=== PATIENT | female | born 1965 | race Caucasian/White ===

== ENCOUNTER → 2018-10-07 19:29 | Outpatient (CLI) | payer OTHER | END | disposition home or self-care (01) | LOC: D.MAMMO 11:30 | PROVIDERS: ATTEND Family Medicine | DX: Z12.31 Encounter for screening mammogram for malignant neoplasm of breast (principal) ==

== ENCOUNTER 2018-12-06 07:13 | Day surgery (SDC) | payer OTHER ==
[~2018-12-06] VITALS: Ht 154.9 cm; Wt 99.3 kg
[2018-12-06 07:48] LABS: HEMATOCRIT 40.6 % (36.0-48.0); MCH 30.1 pg (26.0-34.0); MCHC 34.5 g/dL (31.0-37.0); MCV 87.3 fL (80.0-100.0); MEAN PLATELET VOLUME 8.8 fL (7.4-10.4); RBC 4.65 10x6/uL (4.00-5.40); RDW 13.4 % (11.5-14.5)
[2018-12-06 07:56] LABS: CALC OSMOLALITY 280 mosm/kg (275-300); CALCIUM 8.7 mg/dL (8.5-10.1); CARBON DIOXIDE 28.7 mmol/L (21.0-32.0); CHLORIDE - SERUM 103 mmol/L (98-107); CREATININE - SERUM 0.6 mg/dL (0.6-1.3); GLUCOSE 172 mg/dL (74-106); POTASSIUM - SERUM 4.2 mmol/L (3.5-5.1); SODIUM 138 mmol/L (136-145); UREA NITROGEN 14 mg/dL (7-18); eGFR NON AFRICAN AMERICAN > 90 mL/min (90-120)
[2018-12-06] MEDS ORDERED: ADDERALL 20 MG20 M1 (09:10)
[2018-12-06] MEDS ORDERED: CYCLOBENZAPRINE10 MG (09:11)
[2018-12-06] MEDS ORDERED: NEURONTIN 300300 MG PO (09:12)
[2018-12-06] MEDS ORDERED: MOBIC7.5 MG (09:12)
[2018-12-06] MEDS ORDERED: METFORMIN HCL500 M1 (09:13)
[2018-12-06] MEDS ORDERED: PROMETRIUM200 MG PO (09:13)
[2018-12-06] MEDS ORDERED: LEVEMIR FL100 UNIT/1 (09:14)
[2018-12-06] MEDS ORDERED: ARMOUR THYROID120 MG PO (09:14)
[2018-12-06] MEDS ORDERED: HYDROCODON-ACE1 EAC7 (09:15)
[2018-12-06] MEDS ORDERED: CYMBALTA60 MG PO (09:16)
[2018-12-06] MEDS ORDERED: MAGNESIUM CITRATE (09:17)
[2018-12-06] MEDS ORDERED: FARXIGA10 MG PO (09:17)
[2018-12-06] MEDS ORDERED: FLUSH FREE NIACIN (09:18)
[2018-12-06] MEDS ORDERED: VITAMIN D5000 UNIT PO (09:18)
[2018-12-06] MEDS ORDERED: GLUCOSAMINE HC500 MG (09:19)
[2018-12-06] MEDS ORDERED: BAYER CHEWABLE81 MG PO (09:19)
[2018-12-06 09:35] VITALS: BP 115/67; Ht 154.9 cm; Wt 99.3 kg
--- NOTE | 2018-12-06 19:25 | NUR ---
1900 PT STATES FEELING SHAKY FSBS IS 80. DR. ESTEBAN HERE. AFTER DISCUSSION, IT WAS DECIDED TO CANCEL SURGERY FOR TODAY AND BE RESCHEDULED LATER THIS WEEK. CRANBERRY JUICE SERVED, PT EATING FOOD PROVIDED BY FAMILY. IV DC'D WITH CATH INTACT. 1919 RELEASED AMB.
== END 2018-12-06 19:20 | disposition home or self-care (01) ==
LOC: D.OPS 07:13 → D.PAN 10:00 → D.OPS 12:00 → D.PAN 12:00 → D.OPS 19:20
PROVIDERS: Anesthesiology; ATTEND Surgery
DX: K43.9 Ventral hernia without obstruction or gangrene (principal); Z53.09 Procedure and treatment not carried out because of other contraindication; Z01.812 Encounter for preprocedural laboratory examination

== ENCOUNTER 2018-12-09 06:07 | Inpatient (IN) | payer OTHER ==
[2018-12-09] VITALS (13 sets, daily range): BP systolic 95–121; BP diastolic 52–65; BMI 41.4; BMI 41.6
[~2018-12-09] VITALS: Ht 154.9 cm; Wt 99.8 kg
[~2018-12-09 06:07] MED LIST: ADDERALL 20 MG20 M1 PO; ARMOUR THYROID120 MG PO; BAYER CHEWABLE81 MG PO; CYCLOBENZAPRINE10 MG PO; CYMBALTA60 MG PO; FARXIGA10 MG PO; FLUSH FREE NIACIN; GLUCOSAMINE HC500 MG PO; HYDROCODON-ACE1 EAC7 PO; LEVEMIR FL100 UNIT/1; MAGNESIUM CITRATE; METFORMIN HCL500 M1 PO; MOBIC7.5 MG PO; NEURONTIN 300300 MG PO; PROMETRIUM200 MG PO; VITAMIN D5000 UNIT PO
--- NOTE | 2018-12-09 12:15 | NUR ---
EPIDURAL TO LOWER THORACIC SPINE. BASAL RATE 10ML/HR WITH BOLUS OF 4ML AVAILABLE Q20 MIN.
--- NOTE | 2018-12-09 13:05 | NUR ---
PT TRANSPORTED TO ROOM VIA STRETCHER. PT IS SEDATEDBUT AROUSES TO VERBAL STIMULATION AND IS QUICKLY RETURNED TO RESTING WITH EYES CLOSED. PT IS UNABLE TO AANSWER ADMISSION HISTORY/SUICIDE ASSESSMENT QUESTIONS APPROPRIATELY AT THIS TIME. WILL CONT TO ATTEMPT THROUGHOUT SHIFT. PT WITH JIMENEZ CATHETER DRIANING WITHOUT DIFFICULTY. GREEN/BLUE URIE NOTED TO JIMENEZ COLLECTION BAG. SCDS ARE ON. PIV TO LEFT HAND INFUSING WITHOUT DIFFICULTY. COSME DRAIN TO LEFT UPPER ABDOMEN DRAINED 100ML RED FLUID. BULB IS COMPRESSED AT THIS TIME. ABDOMINAL DRESSINGS X 3 NOTED AND ARE C/D/I. PT WITH EPIDURAL AND IT IS INFUSING WITHOUT DIFFICULTY. EPIDURAL SITE IS C/D/I. PT DENIES FURTHER NEEDS. PT FAMILY IS AT BEDSIDE AND ARE UNABLE TO ANSWER QUESTIONS PERTAINING TO MEDICAL HX AT THIS TIME. BED IS IN THE LOWEST POSITION. CALL LIGHT AND BEDSIDE TABLE ARE WITHIN REACH. SIDE RAILS X 2. VSS. SEE FLOWSHEET.
--- NOTE | 2018-12-09 19:26 | NUR ---
GREETED PATIENT AND INTRODUCED MYSELF. PATIENT IS LAYING IN BED IN SUPINE POSITION. SCDS IN PLACE. O2 IN USE VIA N/C AT 2L. FAMILY MEMBERS AND FRIENDS AT BEDSIDE. CALL LIGHT IN REACH.
[2018-12-10] VITALS (14 sets, daily range): BP systolic 105–138; BP diastolic 56–81
--- NOTE | 2018-12-10 02:56 | NUR ---
CALLED HEALTH ADVISOR AND LEFT MESSAGE ABOUT LOW VOLUME ALARM ON EPIDURAL PUMP
--- NOTE | 2018-12-10 03:02 | NUR ---
SPECIAL SERVICES DIRECTOR CALLED ME BACK AND INFORMED HIM OF THE AMOUNT LEFT ON THE EPIDURAL PAIN PUMP OF 34.2. HE TOLD ME TO CALL HIM BACK WHEN THE VOLUME WAS AT 5 AND HE WOULD COME AND REPLACE.
--- NOTE | 2018-12-10 04:38 | NUR ---
CONTACTED IMELDA PER HIS REQUEST WHEN EPIDURAL PUMP AMOUNT TO BE INFUSED IS 5. IMELDA STATED THAT HE WOULD BE AT THE UNIT SHORTLY.
--- NOTE | 2018-12-10 06:34 | NUR ---
PATIENT LAYING IN BED IN SUPINE POSITION. STATES HER PAIN IS STILL A 10/1O WITH THE EPIDURAL PUMP IN PLACE. ADMINISTERED PRN OXY 5 FOR BREAKTHROUGH PAIN. CALL LIGHT IN REACH.
--- NOTE | 2018-12-10 07:23 | NUR ---
RESTING IN BED. ALERT AND ORIENTED X 3. LUNGS CLEAR BILATERALLY IN ALL [place]SON. HEART SOUNDS S1 AND S2 HEARD IN ALL ATKINSON. BOWEL SOUNDS ACTIVE X 4. ABDOMINAL BINDER IN PLACE. EPIDURAL PAIN PUMP IN PLACE AND FUNCTIONING. SCDS IN PLACE. JIMENEZ PATENT AND DRAINING LIGHT BLUE/GREEN URINE. COSME TO LLQ PATENT. IV TO LEFT HAND PATENT WITHOUT REDNESS. O2 IN PLACE AT 2L. DENIES PAIN. DENIES NEEDS. BED LOW. CALL DELACRUZ AND PERSONAL ITEMS IN REACH. WILL CONTINUE TO MONITOR.
[2018-12-10 07:41] LABS: ALBUMIN 2.8 g/dL (3.4-5.0); ALKALINE PHOSPHATASE 55 U/L (46-116); ALT (SGPT) 21 U/L (10-68); BILIRUBIN - TOTAL 0.49 mg/dL (0.2-1.3); CALC OSMOLALITY 282 mosm/kg (275-300); CARBON DIOXIDE 25.1 mmol/L (21.0-32.0); CHLORIDE - SERUM 105 mmol/L (98-107); CREATININE - SERUM 0.5 mg/dL (0.6-1.3); GLUCOSE 202 mg/dL (74-106); MAGNESIUM - SERUM 1.7 mg/dL (1.8-2.4); PHOSPHOROUS 2.4 mg/dL (2.5-4.9); POTASSIUM - SERUM 3.7 mmol/L (3.5-5.1); PROTEIN - SERUM 5.8 g/dL (6.4-8.2); SODIUM 139 mmol/L (136-145); UREA NITROGEN 9 mg/dL (7-18); eGFR NON AFRICAN AMERICAN > 90 mL/min (90-120)
[2018-12-10 07:43] LABS: TROPONIN-I < 0.017 ng/mL (0.000-0.060)
[2018-12-10 07:54] LABS: BASOPHILS 0.2 % (0-2); EOSINOPHILS 0.3 % (0-7); HEMATOCRIT 36.3 % (36.0-48.0); HEMOGLOBIN 12.3 g/dL (12-16); IMMATURE GRANULOCYTES 0.2 % (0-5); LYMPHOCYTES 18.7 % (15-50); MCH 29.9 pg (26.0-34.0); MCHC 33.9 g/dL (31.0-37.0); MCV 88.3 fL (80.0-100.0); MEAN PLATELET VOLUME 9.4 fL (7.4-10.4); MONOCYTES 7.7 % (2-11); NEUTROPHILS 72.9 % (40-80); PLATELET COUNT 283 10x3/uL (130-400); RBC 4.11 10x6/uL (4.00-5.40); RDW 13.6 % (11.5-14.5); WBC 9.2 10x3/uL (4.8-10.8)
--- NOTE | 2018-12-10 08:47 | NUR ---
FORREST RISK SCREENING PERFORMED. NO RISK INDICATED. PATIENT DENIES SUICIDAL THOUGHTS OR INTENTIONS.
--- NOTE | 2018-12-10 10:17 | NUR ---
SLEEPING. WILL CONTINUE TO MONITOR.
--- NOTE | 2018-12-10 10:29 | NUR ---
FAMILY CONCERNED PATIENT DOES NOT HAVE DIET ORDER. DR CARLITO ORTEZ.
--- NOTE | 2018-12-10 10:35 | NUR ---
SPOKE WITH DR ESTEBAN. STATES PATIENT HAS TO HAVE BM OR PASS GAS PRIOR TO DIET ORDER. STATES GIVE ELECTROLYTE REPLACEMENT IV.
--- NOTE | 2018-12-10 12:25 | NUR ---
REQUESTED AND GIVEN FAN.
--- NOTE | 2018-12-10 13:09 | MORECARE ---
CASE MANAGEMENT DISCHARGE SUMMARY PATIENT: BEV WHITLOCK UNIT: [id number] ADM DATE: 12/09/18 AGE: 53 : 61 SEX: F ROOM/BED: D.[facility] AUTHOR: LAI GREENBERG PHYSICIAN: REFERRING PHYSICIAN: ROSY ESTEBAN MD DATE OF SERVICE: 12/10/18 Discharge Plan Patient Name: BEV WHITLOCK Facility: [facility]:[place] : 1965 Planned Disposition: Home Anticipated Discharge Date: Discharge Date: Expected LOS: Initial Reviewer: [email or web address] Initial Review Date: 12/10/2018 Generated: 12/10/18 2:09 pm Patient Name: BEV WHITLOCK Page 50467 at 1309 All edits/amendments must be made on the electronic document DICTATION DATE: 12/10/18 1309 RAKER BUFFING WHEEL: DOLORES 12/10/18 1309 RPT#: [id number] DC DATE: STATUS: ADM IN [facility] [address] [place] [address] END OF REPORT
--- NOTE | 2018-12-10 13:18 | MORECARE ---
CASE MANAGEMENT DISCHARGE SUMMARY PATIENT: BEV WHITLOCK UNIT: [id number] ADM DATE: 12/09/18 AGE: 53 : 61 SEX: F ROOM/BED: D.2234 AUTHOR: YARIDOC PHYSICIAN: REFERRING PHYSICIAN: ROSY ESTEBAN MD DATE OF SERVICE: 12/10/18 Discharge Plan Patient Name: BEV WHITLOCK Facility: [facility]:[place] : 1965 Planned Disposition: Home Anticipated Discharge Date: Discharge Date: Expected LOS: Initial Reviewer: [email or web address] Initial Review Date: 12/10/2018 Generated: 12/10/18 2:17 pm Comments DCP- Discharge Planning Updated by [email or web address]: Catrachita Sanz on 12/10/18 12:[address] Patient Name: BEV WHITLOCK Admission Status: Elective Accout number: [id number] Admission Date: 12-09-2018 : 1965 Admission Diagnosis: Attending: ROSY ESTEBAN Current LOS: 1 Anticipated DC Date: Planned Disposition: Home Primary Insurance: [employer] PPO Discharge Planning Comments: CM met with patient to complete initial dc planning assessment. CM educated patient on the CM role and verbal consent given by patient to complete assessment. Patient lives at home alone. At discharge patient plans to go to her aunt's house (Myesha Prakash). CM discussed availability of home health, rehab services, and medical equipment. Patient denied known discharge needs at this time. She states that her aunt has a walker with a seat on it that she can borrow if she needs it. Declines need for home health. CM will continue to follow and will assist as needed with dc plans/needs. Continuity Director: Catrachita Sanz DCPIA - Discharge Planning Initial Assessment Updated by [email or web address]: Catrachita Sanz on 12/10/18 1:09 pm * Is the patient Alert and Oriented? Yes * How many steps to enter\exit or inside your home? 6/0 * PCP Dr. Lam * Pharmacy [facility] * Preadmission Environment Home Alone * ADLs Independent * Equipment Glucometer * List name and contact numbers for known caregivers / representatives who currently or will assist patient after discharge: Ritu Santillan - zrhywv - [phone] Jes Weiner - step daughter - [phone] * Verbal permission to speak to the caregivers and representatives has been obtained from the patient. Yes * Community resources currently utilized None * Additional services required to return to the preadmission environment? No * Can the patient safely return to the preadmission environment? Yes * Has this patient been hospitalized within the prior 30 days at any hospital? No Last DP export: 12/10/18 12:09 p Patient Name: BEV WHITLOCK Page 04125 at 1318 All edits/amendments must be made on the electronic document DICTATION DATE: 12/10/181316 CLAIMS AUDITOR: DOLORES 12/10/181316 RPT#: [id number] DC DATE: STATUS: ADM IN [facility] [address] [place] [address] END OF REPORT
--- NOTE | 2018-12-10 13:48 | NUR ---
STATES ANESTHESIOLOGY CAME AND GAVE BOLUS FROM PAIN PUMP. TURNED TO LEFT SIDE. WILL CONTINUE TO MONITOR.
--- NOTE | 2018-12-10 16:15 | NUR ---
SLEEPING. WILL CONTINUE TO MONITOR.
--- NOTE | 2018-12-10 17:12 | OP ---
PATIENT NAME: BEV WHITLOCK MEDICAL RECORD: [id number] :61 LOCATION:D.[facility] [place] ADMISSION DATE:12/09/18 SURGEON: ROSY ESTEBAN MD DATE OF OPERATION: 12/09/2018 PREOPERATIVE DIAGNOSIS: Large incarcerated incisional hernia. POSTOPERATIVE DIAGNOSIS: Large incarcerated incisional hernia. PROCEDURE: Open large incarcerated incisional hernia repair with mesh utilizing the bilateral components separation technique. The myofascial release on the left side was 19.0 cm, on the right it was 18.0 cm. SURGEON: Rosy Esteban MD PROSECUTING ATTORNEY: None. BLOOD LOSS: 200 cc. ANESTHESIA: General. COMPLICATIONS: None. The risks, possible complications, and alternatives to the procedure were explained to the patient. She elects to proceed. OPERATIVE COURSE: I reviewed the patient's CT images. The patient was conveyed to the operating room electively on 12/09/2018. General anesthesia was induced by the anesthesia staff. The abdomen was sterilely prepped and draped. Through the use of double curvilinear incisions, the skin and subcutaneous tissue was excised overlying the hernias. I dissected down into the hernia sacs. I was able to free up the bowel, which consisted of colon as well as small bowel. Some omentum was removed by taking it down with the Super Jaw EnSeal device. Adhesions were lysed. Once I had lysed all the adhesions that I could identify, I began to excise the remaining hernia sac. There were 3 hernia defects, 2 were present in midline, one actually was anterior and inferior to the pubic symphysis. Initially, I thought that this might represent bladder, but it did not. I excised the remaining hernia sac. I entered the peritoneal cavity sharply. I ran the small bowel. I noted no evidence of small bowel or large bowel injury. I was able to sweep down the peritoneum and my plan was to reperitonealize and to place mesh between the peritoneum and the anterior abdominal wall musculature. I was able to free up the peritoneum except cephalad at the linea alba where I transected the peritoneum. I then reperitonealized with running #1 Vicryls. I then placed a polypropylene mesh on top of the peritoneum. I created a prevesicular flap and place a portion of the mesh between the bladder and the pubic symphysis. Intravenous methylene blue was given. I noted no evidence of spillage of methylene blue and no evidence of a bladder injury. The fascia in the midline could not be closed due to tension. Therefore, the component separation technique was indicated. In the anterior axillary line OPERATIVE REPORT [id number] CHINYEREBEV BUTLER between the left anterior superior iliac spine and the costal margin, a parasagittal incision was accomplished. Sharp dissection was carried down through the skin and subcutaneous tissue to the external oblique muscle. This was incised with electrocautery. I then extended my myofascial release cephalad and caudad with the electrocautery. The length of the myofascial release is listed above. I performed some blunt dissection between the external oblique muscle and the internal oblique muscle. I then tried to close the fascia again in the midline. It was under less tension, but was still under tension. Therefore, the bilateral component separation technique was indicated. I went around to the right side. Between the right costal margin and the anterior superior iliac spine, a parasagittal incision was accomplished in the anterior axillary line. Sharp dissection was carried down through the skin and subcutaneous tissues. The external oblique muscle was then transected with electrocautery. I extended this myofascial release, cephalad and caudad. The length is listed above in the operative note. After doing this, I was able to close the fascia in the midline. This was done with a looped #1 PDS from cephalad and caudad directions, closed the fascia in a running horizontal mattress fashion. A 19-Icelandic closed suction drainage system was then brought out through the stab wound in the left lower quadrant and placed on top of the anterior fascia. The myofascial release incisions were closed with interrupted 3-0 Vicryls for the deep dermis as well as metallic clips for the skin. The midline was closed with multiple interrupted 3-0 Vicryls for the subcutaneous adipose tissue and then metallic clips cephalad and horizontal mattress 3-0 Vicryls caudad. Sterile dressings were applied. The patient was then extubated and conveyed to the post-anesthesia care unit where she was in stable condition. TRANSINT:[id number] Voice Confirmation ID: [id number] DOCUMENT ID: [id number] ROSY ESTEBAN MD at 3664 CC: VARGHESE BYRNES [id number] DICTATION DATE: 12/09/18 1224 STILL OPERATOR GIN: 12/09/18 1401 ADM IN [facility] [address] [place] [id number]
--- NOTE | 2018-12-10 18:18 | NUR ---
PATIENT SLEEPING. BED LOW. CALL DELACRUZ AND PERSONAL ITEMS IN REACH.
[2018-12-10 20:31] LABS: PHOSPHOROUS 2.1 mg/dL (2.5-4.9)
[2018-12-11] VITALS (7 sets, daily range): BP systolic 109–139; BP diastolic 62–69
--- NOTE | 2018-12-11 02:53 | NUR ---
PATIENT C/O PAIN TO RIGHT SIDE AND DIFULATY BREATHING , CALL TO [facility]ERS ANESTHESIOLOGY SHE CAME AND ASSISED PT. WHO TRUNED ONTO RIGHT SIDE WAS SLEEPING AND STATED SHE WAS NO LONGER HURTTING OR HAVING TROUBLE BREATHING. NO CHANGES MADE CONTIUE TO CHECK OFTEN FOR NEEDS AND SAFETY. LABS RETRUNED WITH PHOSPHORUS 2.1 LOW , CALL TO PHARMACY REPLACEMENT SENT UP FROM PHARMACY AND STARTED IV PER ORDERS.
[2018-12-11 06:00] LABS: BASOPHILS 0.2 % (0-2); EOSINOPHILS 0.8 % (0-7); HEMATOCRIT 32.6 % (36.0-48.0); IMMATURE GRANULOCYTES 0.4 % (0-5); LYMPHOCYTES 16.4 % (15-50); MCH 29.6 pg (26.0-34.0); MCHC 33.7 g/dL (31.0-37.0); MCV 87.9 fL (80.0-100.0); MEAN PLATELET VOLUME 8.7 fL (7.4-10.4); NEUTROPHILS 73.2 % (40-80); PLATELET COUNT 234 10x3/uL (130-400); RBC 3.71 10x6/uL (4.00-5.40); RDW 13.5 % (11.5-14.5); WBC 8.5 10x3/uL (4.8-10.8)
[2018-12-11 06:15] LABS: CALC OSMOLALITY 275 mosm/kg (275-300); CALCIUM 7.8 mg/dL (8.5-10.1); CARBON DIOXIDE 23.4 mmol/L (21.0-32.0); CHLORIDE - SERUM 103 mmol/L (98-107); CREATININE - SERUM 0.4 mg/dL (0.6-1.3); GLUCOSE 165 mg/dL (74-106); MAGNESIUM - SERUM 1.7 mg/dL (1.8-2.4); POTASSIUM - SERUM 3.4 mmol/L (3.5-5.1); SODIUM 137 mmol/L (136-145); eGFR NON AFRICAN AMERICAN > 90 mL/min (90-120)
[2018-12-11 06:16] LABS: PHOSPHOROUS 2.7 mg/dL (2.5-4.9); UREA NITROGEN 6 mg/dL (7-18)
--- NOTE | 2018-12-11 09:00 | NUR ---
ALERT AND ORIENTEDX4. EPIDURAL INTACT. IBIS=SITA SINGH INTACT ALONG WITH J/P DRAIN WITH DARK BLOOD NOTED. JIMENEZ CATH NOTED AND PATENT. ENCOURAGED TO USE CALL LIGHT FOR ASSIST.
--- NOTE | 2018-12-12 00:30 | NUR ---
PATIENT RESTING INBED WITH NO NEEDS AT THIS TIME NOTED OR STATED CALL LIGHT AND WATER IN REACH BED LOW.
[2018-12-12 00:56] VITALS: BP 120/62
[2018-12-12 04:00] VITALS: BP 115/61
[2018-12-12 06:29] LABS: BASOPHILS 0.2 % (0-2); HEMATOCRIT 31.3 % (36.0-48.0); HEMOGLOBIN 10.7 g/dL (12-16); IMMATURE GRANULOCYTES 0.4 % (0-5); MCH 29.6 pg (26.0-34.0); MCHC 34.2 g/dL (31.0-37.0); MCV 86.5 fL (80.0-100.0); MEAN PLATELET VOLUME 8.8 fL (7.4-10.4); MONOCYTES 8.2 % (2-11); NEUTROPHILS 76.2 % (40-80); PLATELET COUNT 255 10x3/uL (130-400); RBC 3.62 10x6/uL (4.00-5.40); RDW 13.1 % (11.5-14.5); WBC 8.1 10x3/uL (4.8-10.8)
[2018-12-12 06:48] LABS: CALC OSMOLALITY 276 mosm/kg (275-300); CALCIUM 7.8 mg/dL (8.5-10.1); CARBON DIOXIDE 24.4 mmol/L (21.0-32.0); CHLORIDE - SERUM 104 mmol/L (98-107); CREATININE - SERUM 0.4 mg/dL (0.6-1.3); GLUCOSE 188 mg/dL (74-106); MAGNESIUM - SERUM 2.1 mg/dL (1.8-2.4); PHOSPHOROUS 2.5 mg/dL (2.5-4.9); POTASSIUM - SERUM 3.8 mmol/L (3.5-5.1); SODIUM 137 mmol/L (136-145); UREA NITROGEN 7 mg/dL (7-18); eGFR NON AFRICAN AMERICAN > 90 mL/min (90-120)
[2018-12-12 09:25] VITALS: BP 115/58
--- NOTE | 2018-12-12 11:04 | NUR ---
ALERT AND ORIENTED WITH ABDOMINAL DRESSING TO BE CHANGED PER ORDER. IV. LT. HAND WITH IVF INFUSING AT PRESCRIBED RATE. BS NOTED X4 AND UP TO BSC WITH SBA. LUNGS CTA. HRRR. IVF INFUSING AT PRESCRIBED RATE. ENCOURAGED TO USE CALL LIGHT FOR ASSIST.
[2018-12-12 12:32] VITALS: BP 109/55
--- NOTE | 2018-12-12 13:12 | NUR ---
REHAB PRESCREENING Rehab referral received and chart reviewed. This patient has [facility] as her insurance provider which requires a prior authorization. OT evaluation will need to be ordered. We will begin authorization process once OT eval is completed. Thank you for this referral! Allison Brooks, DEAF INTERPRETER Rehab PD
[2018-12-12 17:39] VITALS: BP 103/53
--- NOTE | 2018-12-12 20:05 | NUR ---
SITTING UP ON SIDE OF BED. ALERT AND ORIENTED X4. RESP EVEN AND NONLABORED. TELEMETRY SHOWS SR WITH RATE OF 87. RATES PAIN IN ABD 8. REQUESTS PAIN MED WITH PM MEDS. DRSG X3 NOTED TO ABD WITH COSME DRAIN WITH BLOODY DRAINAGE NOTED. ABD BINDER IN USE. SCDS IN USE. ALKA ALARM IN USE FOR PT SAFETY. AMB WITH ASSIST X1 WITH SLOW UNSTEADY GAIT. GEN WEAKNESS NOTED. NS @ 50 ML/HR INFUSING IN LT FOREARM WITHOUT DIFF. SR ELEVATED X2. CL IN REACH.
[2018-12-12 20:59] VITALS: BP 128/65
--- NOTE | 2018-12-12 21:05 | NUR ---
MEDICATED WITH OXY IR 5MG FOR C/O ABD PAIN. CL IN REACH. ALKA ALARM IN USE.
[2018-12-13 02:08] VITALS: BP 109/61
[2018-12-13 06:43] LABS: BASOPHILS 0.3 % (0-2); EOSINOPHILS 5.1 % (0-7); HEMATOCRIT 30.5 % (36.0-48.0); HEMOGLOBIN 10.2 g/dL (12-16); IMMATURE GRANULOCYTES 0.6 % (0-5); LYMPHOCYTES 27.3 % (15-50); MCH 29.1 pg (26.0-34.0); MCHC 33.4 g/dL (31.0-37.0); MCV 86.9 fL (80.0-100.0); MEAN PLATELET VOLUME 9.1 fL (7.4-10.4); MONOCYTES 11.3 % (2-11); NEUTROPHILS 55.4 % (40-80); PLATELET COUNT 291 10x3/uL (130-400); RBC 3.51 10x6/uL (4.00-5.40); RDW 13.1 % (11.5-14.5); WBC 6.2 10x3/uL (4.8-10.8)
[2018-12-13 06:56] LABS: CALC OSMOLALITY 278 mosm/kg (275-300); CALCIUM 8.6 mg/dL (8.5-10.1); CARBON DIOXIDE 26.6 mmol/L (21.0-32.0); CHLORIDE - SERUM 105 mmol/L (98-107); CREATININE - SERUM 0.3 mg/dL (0.6-1.3); GLUCOSE 156 mg/dL (74-106); POTASSIUM - SERUM 3.3 mmol/L (3.5-5.1); SODIUM 139 mmol/L (136-145); UREA NITROGEN 7 mg/dL (7-18); eGFR NON AFRICAN AMERICAN > 90 mL/min (90-120)
[2018-12-13 07:03] LABS: PHOSPHOROUS 3.4 mg/dL (2.5-4.9)
--- NOTE | 2018-12-13 08:43 | NUR ---
ASSISTED PT TO TOILET WHERE SHE VOIDED CLEAR GREEN COLORED URINE, STATED IT WAS LESS GREEN THAN IT WAS PREVIOUSLY. REPORTED ABDOMINAL PAIN /, ADMINISTERED OXYCODONE PER DRS ORDERS, WILL CONTINUE TO MONITOR. POTASSIUM WAS 3.3, ADMINISTERED K-DUR PER DR.S ORDERS.
[2018-12-13 09:00] VITALS: BP 124/63
--- NOTE | 2018-12-13 09:50 | NUR ---
PT STATES PAIN LEVEL DOWN TO 6/10. EMPTIED 70CC OF BLOOD OUT OF COSME DRAIN. LAYING IN BED VISITING WITH FRIEND AT BEDSIDE. DENIES NEEDS AT THIS TIME.
--- NOTE | 2018-12-13 11:51 | NUR ---
FSBS 264, TREATED WITH 10 UNITS OF INSULIN.
--- NOTE | 2018-12-13 16:33 | NUR ---
Rehab Note- PreAuth started, clinicals faxed for review of possible inpatient acute rehab stay. WIll continue to follow. Thank you for this referral! Melissa Bran RN Clinical Liaison, [facility] Rehab
[2018-12-13 16:43] VITALS: BP 99/71
--- NOTE | 2018-12-13 17:22 | NUR ---
FSBS 263, TREATED WITH 10 UNITS OF INSULIN.
--- NOTE | 2018-12-13 18:12 | NUR ---
PT REPORTS PAIN 02/22, GAVE NORCO PER DRS ORDERS. WILL CONTINUE TO MONITOR.
[2018-12-13 20:00] VITALS: BP 98/61
--- NOTE | 2018-12-13 20:56 | NUR ---
REC'D. SITTING UP BEDSIDE CHAIR. DRSG DRY AND INTACT TO COSME DRAIN SITE.MIDLINE INCISION BILAT. INCISION TO LAT, ABD. ALL WITH CLIPS INTACT WITHOUT REDNESS OR DRAINAGE OR SIGNS OF INFECTION. WILL CONTINUE TO MONITOR FOR ANY CHGES AND FOLLOW CURRENT PLAN OF CARE
[2018-12-14] VITALS: BP 115/53
[2018-12-14 04:00] VITALS: BP 108/61
--- NOTE | 2018-12-14 05:21 | NUR ---
I have reviewed this patient and I concur with the Shift Assessment completed by the Licensed Practical Nurse today this shift.
[2018-12-14 06:06] LABS: BASOPHILS 0.3 % (0-2); HEMATOCRIT 30.9 % (36.0-48.0); HEMOGLOBIN 10.4 g/dL (12-16); IMMATURE GRANULOCYTES 0.6 % (0-5); LYMPHOCYTES 23.1 % (15-50); MCHC 33.7 g/dL (31.0-37.0); MCV 86.1 fL (80.0-100.0); MEAN PLATELET VOLUME 8.7 fL (7.4-10.4); MONOCYTES 10.4 % (2-11); NEUTROPHILS 60.6 % (40-80); PLATELET COUNT 313 10x3/uL (130-400); RBC 3.59 10x6/uL (4.00-5.40); WBC 6.8 10x3/uL (4.8-10.8)
[2018-12-14 06:07] LABS: CALCIUM 8.4 mg/dL (8.5-10.1); CARBON DIOXIDE 30.2 mmol/L (21.0-32.0); CHLORIDE - SERUM 104 mmol/L (98-107); MAGNESIUM - SERUM 1.9 mg/dL (1.8-2.4); PHOSPHOROUS 3.4 mg/dL (2.5-4.9); POTASSIUM - SERUM 3.6 mmol/L (3.5-5.1); SODIUM 140 mmol/L (136-145)
[2018-12-14 06:13] LABS: CALC OSMOLALITY 275 mosm/kg (275-300); CREATININE - SERUM 0.5 mg/dL (0.6-1.3); GLUCOSE 102 mg/dL (74-106); UREA NITROGEN 3 mg/dL (7-18); eGFR NON AFRICAN AMERICAN > 90 mL/min (90-120)
--- NOTE | 2018-12-14 07:40 | NUR ---
PT RESTING IN BED, EYES OPEN. ALERT AND ORIENTED. NO C/O PAIN. NO S/S OF ACUTE DISTRESS NOTED. UP AD NASH. MIDLINE INCISION WITH CLIPS. DRESSING TO LEFT SIDE, C/D/I. ABDOMINAL BINDER ON. IV TO LEFT FOREARM, SL. PT REFUSES FLUIDS. STATED "I AM SUPPOSED TO BE GOING HOME TODAY, I DO NOT WANT TO BE HOOKED UP TO THE POLE." SITE PATENT WITHOUT REDNESS OR SWELLING. FSBS Q6 HOURS. PT ON ELECTROLYTE PROTOCOL. PT DENIES ANYTHING FURTHER AT THIS TIME. CALL LIGHT IN REACH. WILL CONTINUE TO MONTIOR.
[2018-12-14 09:00] VITALS: BP 107/65; BP 97/49
--- NOTE | 2018-12-14 09:49 | NUR ---
Rehab Note- Spoke with Anila with [facility], stated that the clinicals have been received & that the authorization is still pending at this time. Will conitnue to await for a determination. Thank you for this referral! Melissa Barn RN CLinical Liaison, [facility] Rehab
--- NOTE | 2018-12-14 10:12 | MORECARE ---
CASE MANAGEMENT DISCHARGE SUMMARY PATIENT: BEV WHITLOCK UNIT: [id number] ADM DATE: 12/09/18 AGE: 53 : 61 SEX: F ROOM/BED: D.2234 AUTHOR: LAI GREENBERG PHYSICIAN: REFERRING PHYSICIAN: ROSY ESTEBAN MD DATE OF SERVICE: 12/14/18 Discharge Plan Patient Name: BEV WHITLOCK Facility: [facility]:[place] : 1965 Planned Disposition: Home Anticipated Discharge Date: Discharge Date: Expected LOS: Initial Reviewer: [email or web address] Initial Review Date: 12/10/2018 Generated: 12/14/18 11:12 am Comments DCP- Discharge Planning Updated by [email or web address]: Catrachita Sanz on 12/14/18 9:[address] Met with patient concerning discharge plans. She states she still plans on going to her aunt's home. Declines rehab or outpatient rehab. Declines needs. CM will continue to follow and assist with discharge planning/needs. DCP- Discharge Planning Updated by [email or web address]: Catrachita Sanz on 12/10/18 12:[address] Patient Name: BEV WHITLOCK Admission Status: Elective Accout number: [id number] Admission Date: 12-09-2018 : 1965 Admission Diagnosis: Attending: ROSY ESTEBAN Current LOS: 1 Anticipated DC Date: Planned Disposition: Home Primary [facility] Discharge Planning Comments: CM met with patient to complete initial dc planning assessment. CM educated patient on the CM role and verbal consent given by patient to complete assessment. Patient lives at home alone. At discharge patient plans to go to her aunt's house (Myesha Prakash). CM discussed availability of home health, rehab services, and medical equipment. Patient denied known discharge needs at this time. She states that her aunt has a walker with a seat on it that she can borrow if she needs it. Declines need for home health. CM will continue to follow and will assist as needed with dc plans/needs. Dub Room Engineer: Catrachita Sanz DCPIA - Discharge Planning Initial Assessment Updated by [email or web address]: Catrachita Sanz on 12/10/18 1:09 pm * Is the patient Alert and Oriented? Yes * How many steps to enter\exit or inside your home? 6/0 * PCP Dr. Lam * Pharmacy [facility] * Preadmission Environment Home Alone * ADLs Independent * Equipment Glucometer * List name and contact numbers for known caregivers / representatives who currently or will assist patient after discharge: Ritu Santillan - friend - [phone] Jes Weiner - step daughter - [phone] * Verbal permission to speak to the caregivers and representatives has been obtained from the patient. Yes * Community resources currently utilized None * Additional services required to return to the preadmission environment? No * Can the patient safely return to the preadmission environment? Yes * Has this patient been hospitalized within the prior 30 days at any hospital? No Last DP export: 12/10/18 12:18 p Patient Name: BEV WHITLOCK Page 61375 at 1012 All edits/amendments must be made on the electronic document DICTATION DATE: 12/14/18 1012 DAIRY FARMWORKER: DOLORES 12/14/18 1012 RPT#: [id number] DC DATE: STATUS: ADM IN [facility] [address] [place] [address] END OF REPORT
[2018-12-14 15:28] VITALS: Ht 154.9 cm; Wt 99.8 kg
--- NOTE | 2018-12-14 15:30 | MORECARE ---
CASE MANAGEMENT DISCHARGE SUMMARY PATIENT: BEV WHITLOCK UNIT: [id number] ADM DATE: 12/09/18 AGE: 53 : 61 SEX: F ROOM/BED: D.2234 AUTHOR: LAI GREENBERG PHYSICIAN: REFERRING PHYSICIAN: ROSY ESTEBAN MD DATE OF SERVICE: 12/14/18 Discharge Plan Patient Name: BEV WHITLOCK Facility: [facility]:[place] : 1965 Planned Disposition: Home Anticipated Discharge Date: Discharge Date: Expected LOS: Initial Reviewer: [email or web address] Initial Review Date: 12/10/2018 Generated: 12/14/18 4:30 pm Comments DCP- Discharge Planning Updated by [email or web address]: Catrachita Sanz on 12/14/18 2:[address] Patient Name: BEV WHITLOCK Encounter No: [id number] : 1965 Primary Insurance: [employer] [facility] PPO Anticipated DC Date: Planned Disposition: Home External Planned Provider: : DCP follow-up note: Patient and family in agreement with discharge plan. No changes to plan. Case management will follow and assist as needed. Catrachita aSnz DCP- Discharge Planning Updated by [email or web address]: Catrachita Handleyjamaal on 12/14/18 9:[address] Met with patient concerning discharge plans. She states she still plans on going to her aunt's home. Declines rehab or outpatient rehab. Declines needs. CM will continue to follow and assist with discharge planning/needs. DCP- Discharge Planning Updated by [email or web address]: Catrachita Handleyjamaal on 12/10/18 12:[address] Patient Name: BEV WHITLOCK Admission Status: Elective Accout number: [id number] Admission Date: 12-09-2018 : 1965 Admission Diagnosis: Attending: ROSY ESTEBAN Current LOS: 1 Anticipated DC Date: Planned Disposition: Home Primary Insurance: [employer] [facility] PPO Discharge Planning Comments: CM met with patient to complete initial dc planning assessment. CM educated patient on the CM role and verbal consent given by patient to complete assessment. Patient lives at home alone. At discharge patient plans to go to her aunt's house (Myesha Prakash). CM discussed availability of home health, rehab services, and medical equipment. Patient denied known discharge needs at this time. She states that her aunt has a walker with a seat on it that she can borrow if she needs it. Declines need for home health. CM will continue to follow and will assist as needed with dc plans/needs. Industrial Maintenance Instructor: Catrachita Sanz DCPIA - Discharge Planning Initial Assessment Updated by [email or web address]: Catrachita Yvon on 12/10/18 1:09 pm * Is the patient Alert and Oriented? Yes * How many steps to enter\exit or inside your home? 6/0 * PCP Dr. Lam * Pharmacy [facility] * Preadmission Environment Home Alone * ADLs Independent * Equipment Glucometer * List name and contact numbers for known caregivers / representatives who currently or will assist patient after discharge: Ritu Santillan - friend - [phone] Jes Weiner - step daughter - [phone] * Verbal permission to speak to the caregivers and representatives has been obtained from the patient. Yes * Community resources currently utilized None * Additional services required to return to the preadmission environment? No * Can the patient safely return to the preadmission environment? Yes * Has this patient been hospitalized within the prior 30 days at any hospital? No Last DP export: 12/14/18 9:12 am Patient Name: BEV WHITLOCK Page [id number] at 1530 All edits/amendments must be made on the electronic document DICTATION DATE: 12/14/181528 EXPENSE ANALYST: DOLORES 12/14/18 152 RPT#: [id number] DC DATE: STATUS: ADM IN [facility] [address] [place] [address] END OF REPORT
--- NOTE | 2018-12-14 15:39 | NUR ---
I have reviewed this patient and I concur with the Shift Assessment completed by the Licensed Practical Nurse today this shift.
[2018-12-14] MEDS ORDERED: COLACE100 MG PO (16:23)
[2018-12-14 16:24] LABS: % SATURATION 12 % (15-55); IRON 26 ug/dl (35-150); TOTAL IRON BIND CAPACITY 206 ug/dl (260-445); UNSAT IRON BIND CAPACITY 180 ug/dl (150-375)
--- NOTE | 2018-12-14 16:35 | NUR ---
OT NOTE: PT COMPLETED BED MOB WITH CGA. PT COMPLETED EOB SITTING WITH SPV. PT COMPLETED GROOMING TASK AT EOB WITH SET UP. PT STATED SHE WAS STAYING WITH FAMILY MEMBER FOR 6 WEEKS . THANK YOU, AYE HURST
--- NOTE | 2018-12-14 17:00 | NUR ---
PT DISCHARGED HOME WITH FAMILY VIA WHEELCHAIR. NO IV. WENT OVER DISCHARGE INSTRUCTIONS WITH PT, PT VERBALIZED UNDERSTANDING. PT DENIES ANYTHING FURTHER.
== END 2018-12-14 18:16 | disposition home or self-care (01) | DRG 354 ==
LOC: D.OPS 06:07 → D.PAN 08:00 → D.MS 13:04 → D.OPS 13:25 → D.MS 13:25
PROVIDERS: Family Medicine; Internal Medicine Nephrology; ADMIT Surgery; ATTEND Surgery
PROC: 0KNL0ZZ Release Left Abdomen Muscle, Open Approach (ICD-10-PCS; 2018-12-09)
PROC: 0KNK0ZZ Release Right Abdomen Muscle, Open Approach (ICD-10-PCS; 2018-12-09)
PROC: 0WUF0JZ Supplement Abdominal Wall with Synthetic Substitute, Open Approach (ICD-10-PCS; principal; 2018-12-09 08:00)
DX: K43.2 Incisional hernia without obstruction or gangrene (principal); Z68.41 Body mass index [BMI] 40.0-44.9, adult; F17.213 Nicotine dependence, cigarettes, with withdrawal; D62 Acute posthemorrhagic anemia; E11.65 Type 2 diabetes mellitus with hyperglycemia; E03.9 Hypothyroidism, unspecified; E66.9 Obesity, unspecified; E87.6 Hypokalemia

== ENCOUNTER → 2019-08-05 08:00 | Outpatient (CLI) | payer OTHER ==
[2018-12-14 15:28] VITALS: BMI 41.5
[~2019-08-05 08:00] MED LIST changes: +C COMPLEX PO; +COLACE100 MG PO; -LEVEMIR FL100 UNIT/1; +LEVEMIR FL100 UNIT/1 SQ; -MAGNESIUM CITRATE; +MAGNESIUM CITRATE PO; +NOVOLOG100 UNIT/1 SC; +THEREMS-M1 TAB PO; +VITAMIN B PO
[2019-08-05 10:31] LABS: HEMATOCRIT 41.1 % (36.0-48.0); HEMOGLOBIN 13.7 g/dL (12-16); MCH 29.5 pg (26.0-34.0); MCHC 33.3 g/dL (31.0-37.0); MCV 88.6 fL (80.0-100.0); RBC 4.64 10x6/uL (4.00-5.40); RDW 13.5 % (11.5-14.5); WBC 7.3 10x3/uL (4.8-10.8)
[2019-08-05 10:38] LABS: CALC OSMOLALITY 281 mosm/kg (275-300); CALCIUM 8.6 mg/dL (8.5-10.1); CARBON DIOXIDE 29.9 mmol/L (21.0-32.0); CHLORIDE - SERUM 103 mmol/L (98-107); CREATININE - SERUM 0.5 mg/dL (0.6-1.3); GLUCOSE 231 mg/dL (74-106); POTASSIUM - SERUM 4.2 mmol/L (3.5-5.1); SODIUM 138 mmol/L (136-145); UREA NITROGEN 10 mg/dL (7-18); eGFR NON AFRICAN AMERICAN > 90 mL/min (90-120)
== END | disposition home or self-care (01) ==
LOC: D.PAN 08:00 → D.OPS 08-08 08:45 → D.PAN 08-08 09:00 → D.OPS 08-08 09:00 → EDSTATUS 08-08 09:00 → D.OPS 08-08 09:15
PROVIDERS: Anesthesiology; ATTEND Orthopaedic Surgery
DX: M75.101 Unspecified rotator cuff tear or rupture of right shoulder, not specified as traumatic (principal); M75.41 Impingement syndrome of right shoulder; S43.431A Superior glenoid labrum lesion of right shoulder, initial encounter